=== PATIENT | female | born 1955 | race Caucasian/White ===

== ENCOUNTER 2017-09-11 17:30 | Emergency (ER) | payer OTHER ==
[~2017-09-11] VITALS: Ht 147.3 cm; Wt 88.2 kg
[~2017-09-11 17:30] MED LIST: ACETAMINOPHN-T1 EACH PO; AUGMENTIN875 MG PO; BACTRIM,SEPT1 TABLET PO; CALCIUM 600+D31 EACH PO; CYCLOBENZAPRINE10 MG PO; DILAUDID2 MG PO; ENDOCET 5-3251 EACH PO; ESCITALOPRAM OX20 MG PO; FLEXERIL10 MG PO; KLONOPIN0.5 M1 PO; LEXAPRO20 MG PO; LISINOPRIL5 MG PO; LOW DOSE ASPIRI81 M1 PO; LYRICA75 MG PO; MEDROL DOSEPAK4 MG PO; NAPROXEN500 MG PO; NICODERM CQ1 EAC2 TD; NORCO 5/3251 TABLET PO; NUCYNTA ER100 MG PO; PAXIL20 MG PO; PERCOCET 10/1 TABLET PO; PRAVACHOL40 MG PO; PRAVASTATIN SOD40 MG PO; PRINIVIL5 MG PO; TYLENOL WITH C1 EACH PO
[2017-09-11 19:47] VITALS: BP 137/80
== END 2017-09-11 19:48 | disposition home or self-care (01) ==
LOC: EME 17:30
DX: S39.012A Strain of muscle, fascia and tendon of lower back, initial encounter (principal); M54.2 Cervicalgia; V49.40XA Driver injured in collision with unspecified motor vehicles in traffic accident, initial encounter; Y92.410 Unspecified street and highway as the place of occurrence of the external cause; I10 Essential (primary) hypertension; E78.5 Hyperlipidemia, unspecified; F41.9 Anxiety disorder, unspecified; F32.9 Major depressive disorder, single episode, unspecified; Z87.891 Personal history of nicotine dependence; Z91.040 Latex allergy status; Z88.6 Allergy status to analgesic agent; Z88.5 Allergy status to narcotic agent; Z88.8 Allergy status to other drugs, medicaments and biological substances
CPT/HCPCS: 70450; 72125; 72131; 74176; 99281; 99284; J1885